=== PATIENT | female | born 1940 | race Caucasian/White ===

== ENCOUNTER 2024-05-14 07:36 | Emergency (ER) | payer MEDICARE, OTHER, SELFPAY ==
[2024-05-14 07:50] VITALS: BP 162/67; PULSE 59; RESP 18; TEMP 36.2; O2SAT 96; BMI 44.6
--- NOTE | 2024-05-14 08:10 | ED.GENADULT ---
HPI - General Adult General Chief complaint: Unspecified Complaint, Adult Stated complaint: Diabetic, redness on legs, poss uti Time Seen by Provider: 05/14/24 07:48 History of Present Illness HPI narrative: Patient is 83 white female with insulin and diabetes, stage 3 kidney disease, visiting from [place] and presents with increasing redness on both legs up to her shins bilaterally. She denies allergic process or other injury. She is completing a course of antibiotics for UTI. She has got Keflex on board now. She had Klebsiella as a UTI component. Started on Macrobid. Rash does occasionally itch but it is not markedly hot or tender. Related Data Home Medications ?Medication ?Instructions ?Recorded ?Confirmed carvedilol 12.5 mg tablet (Coreg) 12.5 mg PO BID 05/14/24 05/14/24 hydralazine 25 mg tablet 25 mg PO BID 05/14/24 05/14/24 insulin degludec 100 unit/mL (3 20 unit subcut QHS 05/14/24 05/14/24 mL) subcutaneous pen (Tresiba FlexTouch U-100 insulin) lisinopril 40 mg tablet 40 mg PO DAILY 05/14/24 05/14/24 rosuvastatin 10 mg tablet 10 mg PO DAILY 05/14/24 05/14/24 Previous Rx's ?Medication ?Instructions ?Recorded azithromycin 250 mg tablet See Rx Instructions PO .COMPLEX #6 05/14/24 (Zithromax Z-Logan) tabs Allergies Allergy/AdvReac Type Severity Reaction Status Date / Time Sulfa (Sulfonamide Allergy Verified 05/14/24 07:56 Antibiotics) sulfamethoxazole Allergy Verified 05/14/24 07:56 [From Bactrim] trimethoprim [From Bactrim] Allergy Verified 05/14/24 07:56 Review of Systems Status of ROS: Reports: 6 or more systems reviewed and unremarkable except as noted in History and below PFSH PFS Social History Smoking Status: Never smoker Do you use any of these nicotine containing products: None Second hand tobacco smoke exposure: No How often do you have a drink containing alcohol: never How often do you have six or more drinks on one occasion: Never AUDIT-C Alcohol total score: 0 Non-prescribed substance use: denies use service: No Exam Narrative: Exam Narrative: Objective: Vital signs show elevated blood pressure Alert orient x3 no distress Lower extremities show from mid cohn to ankle some redness and slight warmth of both legs. Does not look like an allergic reaction. Looks more like a mild cellulitis. She has no palpable venous cords negative Homans sign She has denied any chest pain or breathing problem. Const: Vital Signs, click to edit/add: Vital Signs - 24 hr 05/14/24 07:50 Temperature 97.1 F L Pulse Rate [Left P ulse Oximeter] 59 L Respiratory Rate 18 Blood Pressure [Le ft Upper Arm] 162/67 H Pulse Oximetry 96 Oxygen Delivery Me thod Room Air Course Vital Signs Vital signs: Initial Vital Signs Temperature 97.1 F L 05/14/24 07:50 Temperature Source Temporal Artery Scan 05/14/24 07:50 Pulse Rate 59 L 05/14/24 07:50 Pulse Rhythm Regular 05/14/24 07:50 Pulse Strength 3+ Normal 05/14/24 07:50 Respiratory Rate 18 05/14/24 07:50 Blood Pressure 162/67 H 05/14/24 07:50 Blood Pressure Mean 98 05/14/24 07:50 Blood Pressure Position Sitting 05/14/24 07:50 Pulse Oximetry 96 05/14/24 07:50 Oxygen Delivery Method Room Air 05/14/24 07:50 Vital Signs Temperature 97.1 F L 05/14/24 07:50 Pulse Rate 59 L 05/14/24 07:50 Respiratory Rate 18 05/14/24 07:50 Blood Pressure 162/67 H 05/14/24 07:50 Pulse Oximetry 96 05/14/24 07:50 Oxygen Delivery Method Room Air 05/14/24 07:50 Temperature 97.1 F L 05/14/24 07:50 Pulse Rate 59 L 05/14/24 07:50 Respiratory Rate 18 05/14/24 07:50 Blood Pressure 162/67 H 05/14/24 07:50 Pulse Oximetry 96 05/14/24 07:50 Oxygen Delivery Method Room Air 05/14/24 07:50 Medications Administered Medications: Discontinued Medications Generic Name Dose Route Start Last Admin Trade Name Freq PRN Reason Stop Dose Admin Ceftriaxone Sodium 500 mg 05/14/24 08:07 05/14/24 08:19 Ceftriaxone 500 Mg Vial IM 05/14/24 08:08 500 mg ONCE ONE Administration Lidocaine HCl 1 ml 05/14/24 08:07 05/14/24 08:20 Lidocaine 1% 5 Ml (Pf) 5 Ml Vial IM 1 ml DIRECTED PRN Administration Pain Medical Decision Making MDM Narrative Medical decision making narrative: [age] year white female insulin-dependent diabetic with what looks like lower extremity cellulitis. She has been on Keflex for UTI. I think it be reasonable to stop this and start Zithromax, would also have her get an injection of Rocephin 500 mg IM for the cellulitis and start Zithromax as a Z-Logan as well. Elevate the legs, warm bath daily, return if problems or concerns. She was comfortable this will follow up as directed. Careful monitoring of her blood sugars. The patient reports that her UTI symptoms or complete resolved. I think at this point given her UTI symptoms are completely resolved with she can stop the Keflex as mention. Discharge Plan Discharge Clinical Impression: Cellulitis Patient Disposition: Home w/ Parent or Adult Condition: Stable Additional Instructions: Elevate legs, warm bath daily, antibiotic as prescribed. stop the Keflex you have been taking and start the Zithromax. Return as needed Activity Level: Light activity Discharge Diet: Diabetic Prescriptions: New azithromycin [Zithromax Z-Logan] 250 mg tablet See Rx Instructions .ROUTE .COMPLEX Qty: 6 0RF Rx Instructions: For 250 mg dose pack: take 500 mg today (day 1), then 250 mg for 4 days (days 2-5) No Action carvedilol [Coreg] 12.5 mg tablet 12.5 mg PO BID Rx Instructions: must administer with a meal/food lisinopril 40 mg tablet 40 mg PO DAILY rosuvastatin 10 mg tablet 10 mg PO DAILY hydralazine 25 mg tablet 25 mg PO BID insulin degludec [Tresiba FlexTouch U-100] 100 unit/mL (3 mL) insulin pen 20 unit subcut QHS Stand Alone Forms: [facility] Info Instructions
[2024-05-14] MEDS: cefTRIAXone 500 MG VIAL IM (08:19)
[2024-05-14] MEDS: LIDOCAINE 1% 5 ml (pf) 5 ML VIAL 1 ML IM (08:20)
== END 2024-05-14 08:26 | disposition home or self-care (01) ==
LOC: ED 08:17
PROVIDERS: Emergency Provider Family Medicine
DX: L03.116 Cellulitis of left lower limb (principal); L03.115 Cellulitis of right lower limb
CPT/HCPCS: 96372; 99283; J0696